=== PATIENT | female | born 1945 | race Caucasian/White ===

== ENCOUNTER 2022-07-03 14:46 | Emergency (ER) | payer MEDICARE, OTHER, SELFPAY ==
--- NOTE | ~2022-07-03 | CT_ITS ---
EXAMINATION: CT HEAD WITHOUT CONTRAST CT CERVICAL SPINE WITHOUT CONTRAST CLINICAL INFORMATION: Fall. COMPARISON: None. TECHNIQUE: Imaging was performed from the skull base to vertex without intravenous administration of contrast. In addition, helical noncontrast CT imaging was acquired through the cervical spine and source images were reviewed along with axial reconstructions and sagittal and coronal MPRs. [This CT examination was performed using dose optimization techniques as appropriate, variously including the following: *Automated exposure control *Adjustment of mA and/or kV according to patient size (this includes techniques or standardized protocols for targeted exams where dose is matched to indication/reason for exam; i.e. extremities or head) *Use of iterative reconstruction technique] DLP: 987 mGy-cm FINDINGS: HEAD: No intracranial mass, hemorrhage, or midline shift is visualized. There is generalized global volume loss. There is moderate prominence of the ventricles and the sulci . There is mild hypodensity of the periventricular white matter due to chronic small vessel ischemic disease. There are vascular calcifications of the internal carotid arteries bilaterally. . No extra-axial collections are identified. The paranasal sinuses and mastoid air cells are well aerated. CERVICAL SPINE: There is no evidence of acute cervical spine fracture. Vertebral bodies remain normal in height. Cervical vertebrae have normal alignment. There is multilevel degenerative spondylosis of the cervical spine with disc height narrowing and endplate spurs and facet joint arthrosis No pre- or paravertebral soft tissue abnormality is identified. Limited assessment of the lung apices is unremarkable. CT/CT cervical spine wo IV con IMPRESSION: 1. No acute intracranial pathology. 2. No CT evidence of acute cervical spine fracture or traumatic subluxation
[2022-07-03 14:55] VITALS: BP 146/88; PULSE 79; PULSE 83; RESP 16; O2SAT 98; BMI 24.6
--- NOTE | 2022-07-03 15:14 | PC.NURSE ---
Pt arrived from facility, [facility], EMS reports that they would not give much information besides the pt is at baseline cognition. Pt is unable to answer questions, she is talking with her cat who is not present. stating her head hurts. Pt has a lac above her left eye brow. Pt refusing pipe covering molder and pulling it off.
--- NOTE | 2022-07-03 17:06 | ED.FALL ---
HPI - Fall General Chief Complaint: Fall Stated Complaint: Fall, from SNF per EMS Time Seen by Provider: 07/03/22 16:12 Source: EMS and RN notes reviewed Mode of arrival: EMS Limitations: altered mental status History of Present Illness HPI Narrative: Patient's with history of dementia came from longterm for unwitnessed fall, patient was on the floor with laceration left eyebrow details not available patient with dementia no other obvious injury Related Data Allergies Allergy/AdvReac Type Severity Reaction Status Date / Time diphenhydramine Allergy Unknown Verified 07/03/22 15:00 [From Benadryl] Penicillins Allergy Unknown Verified 07/03/22 15:00 Review of Systems Review of Systems: Yes all other systems are reviewed and are negative [facility] Social History Social History Alcohol intake: never Smoked in Last 30 Days: No Use of substances other than those prescribed or required for medical reasons: No Advance Directives: No Advance Directives Information Provided: Yes Physical Exam Vital Signs: Vital Signs: Last Vital Signs Temp 97.9 F 07/03/22 21:53 Pulse 71 07/03/22 21:53 Resp 16 07/03/22 21:53 BP 156/85 H 07/03/22 21:53 Pulse Ox 100 07/03/22 21:53 O2 Del Method Room Air 07/03/22 21:53 BMI result Body Mass Index 24.6 Appearance: Alert. Oriented X1-2. No acute distress. Eyes: no pallor/icterus lac to left eyebrow ENT: Pharynx normal. Oral Mucosa moist Neck: Normal inspection. Neck supple. No midline tenderness CVS: Normal heart rate and rhythm. Pulses normal. Respiratory: No respiratory distress. Equal air entry bilateral, no wheezing/rales/rhonchi Abdomen: Soft and nontender. Bowel sounds are present, no mass palpable, Skin: Skin warm and dry. Normal skin color. Normal skin turgor. Laceration left eyebrow Extremities: No lower extremity edema. No calf tenderness Neuro: Oriented X 1-2. No motor deficit. No sensory deficit.No cerebellar signs , cranial nerves II-XII intact HEENT: Face images: 1. 3 cm long suture laceration right eyebrow Medications Administered Discontinued Medications Generic Name Dose Route Start Last Admin Trade Name Freq PRN Reason Stop Dose Admin Lidocaine HCl 5 ml 07/03/22 18:53 07/03/22 20:58 Lidocaine Hcl 2 % Mpf 5 Ml Vial SUBCUT 07/03/22 18:54 Not Given ONCE ONE Lidocaine HCl 5 ml 07/03/22 20:15 07/03/22 20:59 Lidocaine Hcl 2 % Mpf 2 Ml Vial SUBCUT 07/03/22 20:16 5 ml ONCE ONE Administration Procedures Laceration Laceration 1: Site: face (Left eyebrow) Side (If applicable): left Size (cm): 3 Description: linear Depth: simple, single layer Local Anesthetic: lidocaine 1% Amount of anesthesia used (mL): 5 Pre-repair: deep structures intact Skin layer closed with: nylon Size (cm): 5-0 Number of sutures: 6 Technique: simple, interrupted Medical Decision Making Medical Decision Making MDM Narrative: Patient has stable vitals mechanical fall with history of same in the past CT head and C-spine negative head0 superficial laceration left eyebrow which was sutured Discharge Plan Discharge Clinical Impression: Fall, Laceration of skin of face Patient Disposition: Xfer LTC Transfer Details: Head CT and cervical spine CT negative Laceration left eyebrow sutured Instructions: Laceration (ED), Fall Prevention for Older Adults (ED) Additional Instructions: Local care as advised Suture removal in 7-10 days Interventions: ED Discharge Assessment Last Done: 07/03/22 22:19 Discharge Date/Time: 07/03/22 22:21
--- NOTE | 2022-07-03 18:28 | MHC.EDTECH ---
Incontinence care completed at this time. New linens placed.
--- NOTE | 2022-07-03 19:54 | PC.NURSE ---
Pt A&O to self, denies any pain. Pt has a hematoma to left eyebrow. Pt incontinent of urine, new linen and gown given. Camera in room.
--- NOTE | 2022-07-03 20:12 | PC.NURSE ---
Med not available in pyxis, pharmacy notified.
[2022-07-03 20:13] VITALS: BP 164/84; PULSE 72; RESP 18; TEMP 36.6; O2SAT 99
[2022-07-03 21:53] VITALS: BP 156/85; PULSE 71; RESP 16; TEMP 36.6; O2SAT 100
--- NOTE | 2022-07-03 22:21 | PC.NURSE ---
Report given to Ann. Saavedra transferred back to [facility] via ambulance.
== END 2022-07-03 22:21 ==
PROVIDERS: Emergency Provider Internal Medicine; PCP Emergency Medicine
DX: S01.112A Laceration without foreign body of left eyelid and periocular area, initial encounter (principal); W19.XXXA Unspecified fall, initial encounter; Y93.9 Activity, unspecified; Y92.129 Unspecified place in nursing home as the place of occurrence of the external cause; Y99.9 Unspecified external cause status
CPT/HCPCS: 12013; 70450; 72125; 99284

== ENCOUNTER 2022-12-11 15:03 | Emergency (ER) | payer MEDICARE, OTHER, SELFPAY ==
--- NOTE | ~2022-12-11 | CT_ITS ---
EXAMINATION: CT HEAD WITHOUT CONTRAST CT FACIAL BONES WITHOUT CONTRAST CT CERVICAL SPINE WITHOUT CONTRAST CLINICAL INFORMATION: Fall. Trauma. Head injury. Neck injury. COMPARISON: CT head CT cervical spine July 03, 2022 TECHNIQUE: Imaging was performed from the skull base to vertex without intravenous administration of contrast. In addition, helical noncontrast CT imaging was acquired through the cervical spine and facial bones and source images were reviewed along with axial reconstructions and sagittal and coronal MPRs. [This CT examination was performed using dose optimization techniques as appropriate, variously including the following: *Automated exposure control *Adjustment of mA and/or kV according to patient size (this includes techniques or standardized protocols for targeted exams where dose is matched to indication/reason for exam; i.e. extremities or head) *Use of iterative reconstruction technique] DLP: 1201 mGy-cm FINDINGS: HEAD: No intracranial mass, hemorrhage, or midline shift is visualized. There is generalized global volume loss. There is moderate prominence of the ventricles and the sulci . There is mild hypodensity of the periventricular white matter due to chronic small vessel ischemic disease. There are vascular calcifications of the internal carotid arteries bilaterally. . No extra-axial collections are identified. FACIAL BONES: There is no evidence of an acute facial bone fracture. The paranasal sinuses are well aerated. The orbits are unremarkable in appearance. CERVICAL SPINE: There is no evidence of acute cervical spine fracture. Alignment is anatomic. There is multilevel degenerative change. Multilevel disc height narrowing, vertebral endplate spurring and facet joint arthrosis. No pre- or paravertebral soft tissue abnormality is identified. Limited assessment of the lung apices is unremarkable. CT/CT cervical spine wo IV con IMPRESSION: 1. No acute intracranial process or discrete facial bone fracture. 2. No acute cervical spine fracture or traumatic subluxation.
[2022-12-11 15:14] VITALS: BP 147/82; PULSE 85; O2SAT 96
[2022-12-11 15:16] VITALS: BP 149/87; PULSE 80; RESP 16; O2SAT 97; BMI 19.1
[2022-12-11 15:20] VITALS: BP 119/80; PULSE 106
--- NOTE | 2022-12-11 15:25 | ED.FALL ---
HPI - Fall General Chief Complaint: Fall Stated Complaint: FALL KNEE PAIN + NECK COLLAR - THINNERS Time Seen by Provider: 12/11/22 15:24 Related Data Allergies Allergy/AdvReac Type Severity Reaction Status Date / Time diphenhydramine Allergy Unknown Verified 07/03/22 15:00 [From Benadryl] Penicillins Allergy Unknown Verified 07/03/22 15:00 PMFSH Social History Social History Alcohol intake: never Physical Exam Vital Signs: Vital Signs: Last Vital Signs Pulse 106 H 12/11/22 15:20 Resp 16 12/11/22 15:16 BP 119/80 12/11/22 15:20 Pulse Ox 97 12/11/22 15:16 O2 Del Method Room Air 12/11/22 15:16 BMI result Body Mass Index 19.1
--- NOTE | 2022-12-11 16:05 | ED.GENADULT ---
HPI - General Adult General Chief complaint: Fall Stated complaint: FALL KNEE PAIN + NECK COLLAR - THINNERS Time Seen by Provider: 12/11/22 15:24 Source: patient, family (patient's daughter) and EMS Mode of arrival: EMS Limitations: other (patient demented at baseline) History of Present Illness HPI narrative: Patient is a 77 year old assigned female at with a history of HTN presenting to the emergency department today after a trip and fall. Patient states that her mouth hurts the most. SNF staff states that the patient tripped and fell, causing her teeth to be pushed backwards. SNF staff states that the patient did not have any loss of consciousness. Patient denies any dizziness, lightheadedness, abdominal pain, nausea, vomiting, fever, chills, blurry vision, double vision, loss of vision, chest pain, difficulty breathing, shortness of breath, back pain, night sweats, pain with urination, increased urinary frequency, increased urinary urgency, blood in her urine or stool, syncope or a near syncopal episode, bowel incontinence, bladder incontinence, bowel retention, bladder retention, or any other complaints at this time. Onset (ago): minute(s) Location: face Radiation: non-radiation Severity: mild Severity scale (1-10): 3 Relieving factors: none Exacerbating factors: none Associated symptoms: denies other symptoms Treatments prior to arrival: none Related Data Allergies Allergy/AdvReac Type Severity Reaction Status Date / Time diphenhydramine Allergy Unknown Verified 07/03/22 15:00 [From Benadryl] Penicillins Allergy Unknown Verified 07/03/22 15:00 Review of Systems Constitutional: Constitutional: Reports no additional constitutional complaints, Denies chills, Denies fever(s) and Denies night sweats Eyes: Eyes: Reports no additional eye complaints, Denies blurry vision, Denies change in vision, Denies diplopia, Denies eye discharge, Denies loss of vision and Denies eye pain ENT: Denies dizziness and Reports mouth pain Cardiovascular: Cardiovascular: Reports no additional cardiovascular complaints, Denies chest pain, Denies lightheadedness, Denies Loss of Consciousness and Denies dyspnea Respiratory: Respiratory: Reports no additional respiratory complaints and Denies dyspnea Gastrointestinal: Gastrointestinal: Reports no additional gastrointestinal complaints, Denies abdominal pain, Denies melena, Denies hematochezia, Denies change in bowel habits and Denies change in stool character Genitourinary: Genitourinary: Denies hematuria, Denies urinary frequency, Denies dysuria, Denies urinary incontinence, Denies urinary hesitancy and Denies urinary urgency Musculoskeletal: Musculoskeletal: Reports no additional musculoskeletal complaints, Denies numbness and Denies tingling Neurologic: Denies dizziness, Denies loss of vision, Denies numbness and Denies tingling Psychiatric: Psychiatric: Reports no additional psychiatric complaints Endocrine: Endocrine: Reports no additional endocrine complaints Hematologic/Lymphatic: Hematologic/Lymphatic: Reports no additional hematologic/lymphatic complaints Allergic/Immunologic: Allergic/Immunologic: Reports no additional allergic/immunologic complaints [facility] Past Medical History Attestation statement: The following information was validated with the patient. (all information validated with SNF staff.) Source: old records reviewed, nursing notes reviewed and other (SNF staff and EMS provided additional history.) Social History Social History Alcohol intake: never Advance Directives: Yes Advance Directives on File: Yes Advance Directives Date on File: 07/07/22 Physical Exam ED Vital Signs: Vital Signs - 24 hr 12/11/22 15:16 12/11/22 15:20 12/11/22 16:54 Pulse Rate 80 106 H 75 Respiratory Rate 16 18 Blood Pressure 149/87 H 119/80 129/75 Pulse Oximetry 97 97 Oxygen Delivery Method Room Air Room Air 12/11/22 18:22 Pulse Rate 74 Respiratory Rate 14 Blood Pressure 164/87 H Pulse Oximetry 100 Oxygen Delivery Method BMI result Body Mass Index 19.1 Const General: cooperative, no acute distress, alert and awake Nutritional Appearance: well nourished Orientation/consciousness: patient oriented x3 Limitations: no limitations [facility] Head: Yes normal to inspection and Yes atraumatic Ears: hearing grossly normal bilaterally and external ears normal General nose exam: Normal external nose present, no nasal discharge noted and no epistaxis Face and sinus: Yes normal facial exam, No abrasion and No laceration Mouth: Normal oral and palatal mucosa present, no drooling and no muffled voice Teeth image: 1. bleeding from gums above tooth 7, 8, 9, and 10 2. false teeth angled slightly toward the throat Eyes General: appearance normal, both eyes and all related structures Periorbital: periorbital findings normal Eyelids: Yes eyelids normal Conjunctivae: conjunctivae normal Pupils: Equal, round and reactive pupils present EOM: EOMs intact bilaterally Neck Neck: Yes normal visual inspection, Yes full ROM and Yes no lymphadenopathy Chest Chest palpation & inspection: normal inspection of the chest Resp Effort & Inspection: normal respiratory effort and able to speak in complete sentences GI Inspection: Yes normal to inspection Neuro General: patient oriented x3 and moves all extremities Cranial nerves: Yes Equal, round and reactive pupils present Cognition (Neuro): normal cognition Motor exam (neuro): 5/5 motor strength present throughout Sensory Exam: Normal double simultaneous stimulation for sensation Coordination: [id number] test normal Extrem General: Yes normal to inspection, Yes full ROM and Yes capillary refill normal Psych Appearance: grossly normal Mental Status: mental status grossly normal Affect: normal affect Attitude: cooperative Thought process: Normal thought process present Thought content: Normal thought content present Insight: Good insight present (Psych) Medical Decision Making Medical Decision Making MDM Narrative: Patient is a 77 year old assigned female at with a history of HTN and dementia presenting to the emergency department today after a trip and fall. Patient's physical exam was as noted in the physical exam portion of this note. Patient's head, face, and c-spine CTs showed no acute process. I consulted with my attending physician Dr. Whitlock who agreed the patient is appropriate for discahrge back to the SNF. Patient's teeth are not lose at this time. I explained my physical exam findings as well as all test results to the patient and the patient's daughter. I answered all questions asked by the patient and the patient's daughter. I stressed the importance of the patient taking her medication as prescribed. I stressed the importance of the patient following up with her primary care provider and a dentist. I stressed the importance of the patient returning to the emergency department immediately if her symptoms were to worsen or if she were to develop any dizziness, shortness of breath, difficulty breathing, chest pain, blurry vision, loss of vision, nausea, vomiting, abdominal pain, fever, chills, back pain, or any other complaints. Patient and the patient's daughter verbalized agreement and understanding with this treatment plan and discharge. Differential Diagnosis Differential Diagnoses: The differential diagnosis associated with the presentation includes Dental trauma Facial trauma Fall Independent Interpretation I performed an independent interpretation of an: CT Scan Interpretation: My interpretation is in agreement with the radiologist's impression of these imaging studies. EXAMINATION: CT HEAD WITHOUT CONTRAST CT FACIAL BONES WITHOUT CONTRAST CT CERVICAL SPINE WITHOUT CONTRAST CLINICAL INFORMATION: Fall. Trauma. Head injury. Neck injury. COMPARISON: CT head CT cervical spine July 03, 2022 TECHNIQUE: Imaging was performed from the skull base to vertex without intravenous administration of contrast. In addition, helical noncontrast CT imaging was acquired through the cervical spine and facial bones and source images were reviewed along with axial reconstructions and sagittal and coronal MPRs. [This CT examination was performed using dose optimization techniques as appropriate, variously including the following: *Automated exposure control *Adjustment of mA and/or kV according to patient size (this includes techniques or standardized protocols for targeted exams where dose is matched to indication/reason for exam; i.e. extremities or head) *Use of iterative reconstruction technique DLP: 1201 mGy-cm FINDINGS: HEAD: No intracranial mass, hemorrhage, or midline shift is visualized. There is generalized global volume loss. There is moderate prominence of the ventricles and the sulci . There is mild hypodensity of the periventricular white matter due to chronic small vessel ischemic disease. There are vascular calcifications of the internal carotid arteries bilaterally. . No extra-axial collections are identified. FACIAL BONES: There is no evidence of an acute facial bone fracture. The paranasal sinuses are well aerated. The orbits are unremarkable in appearance. CERVICAL SPINE: There is no evidence of acute cervical spine fracture. Alignment is anatomic. There is multilevel degenerative change. Multilevel disc height narrowing, vertebral endplate spurring and facet joint arthrosis. No pre- or paravertebral soft tissue abnormality is identified. Limited assessment of the lung apices is unremarkable. CT/CT head/brain wo IV con IMPRESSION: 1. No acute intracranial process or discrete facial bone fracture. 2. No acute cervical spine fracture or traumatic subluxation. Dictated By: Stew Milner MD Signed By: Electronically signed by Stew Milner MD 12/11/22 9977 Radiology Impression Discussion of test interpretation with radiology: I have reviewed the radiologist's reading. Independent Historian Clinical information obtained from an independent historian. History obtained from or confirmed by: EMS (EMS provided additional history and confirmed the history provided by the patient.) and Other (patient's daughter provided additional history and confirmed the history provided by the patient.) Chronic Conditions Patient?s care impacted by: Hypertension and Other (Dementia) Discharge Plan Discharge Clinical Impression: Fall, Dental injury Patient Disposition: Home, Self-Care Instructions: Fall Prevention for Older Adults (ED) Additional Instructions: Follow up with your primary care provider and a dentist. Return to the emergency department immediately if your symptoms worsen or if you develop any dizziness, shortness of breath, difficulty breathing, chest pain, blurry vision, loss of vision, nausea, vomiting, abdominal pain, fever, chills, back pain, or any other complaints. Referrals: [facility] [place] [facility] [Provider Group] (Call to establish and follow up with a primary care provider. If you already have a primary care provider, please follow up with them.) [facility] [place] Primary [facility], [place] [Provider Group] (Call to establish and follow up with a primary care provider. If you already have a primary care provider, please follow up with them.) [facility] [place] Primary Care,[place] [Provider Group] (Call to establish and follow up with a primary care provider. If you already have a primary care provider, please follow up with them.) Interventions: ED Discharge Assessment Last Done: 12/11/22 19:04 Discharge Date/Time: 12/11/22 19:04 Print Language: Hebrew
[2022-12-11 16:54] VITALS: BP 129/75; PULSE 75; RESP 18; O2SAT 97
--- NOTE | 2022-12-11 16:56 | PC.NURSE ---
brought from [facility] for falls today, patient was attempting to remove c-collar and get out of bed. awaiting results of ct scan, patient is resting quietly in room watching tv at this time. call snowden within reach.
[2022-12-11 18:22] VITALS: BP 164/87; PULSE 74; RESP 14; O2SAT 100
== END 2022-12-11 19:04 | disposition home or self-care (01) ==
PROVIDERS: Emergency Provider Emergency Medicine
DX: S89.90XA Unspecified injury of unspecified lower leg, initial encounter (principal); S09.93XA Unspecified injury of face, initial encounter; R51.9 Headache, unspecified; M54.2 Cervicalgia; W01.10XA Fall on same level from slipping, tripping and stumbling with subsequent striking against unspecified object, initial encounter; Y93.9 Activity, unspecified; Y92.9 Unspecified place or not applicable; Y99.9 Unspecified external cause status
CPT/HCPCS: 70450; 70486; 72125; 99284